=== PATIENT | male | born 1995 | race Caucasian/White ===

== ENCOUNTER 2016-12-25 07:37 | Emergency (ER) | payer OTHER ==
--- NOTE | 2016-12-25 08:52 | UC ---
Skin Complaint HPI - HPI Summary HPI Summary: WOKE UP THIS MORNING WITH RED AREAS ON HIS LEGS, ARMS AND RIGHT GREAT TOE. NO FEVER. SPOTS ARE ITCHY AND SLIGHTLY TENDER. - History of Current Complaint Chief Complaint: UCSkin Time Seen by Provider: 12/25/16 08:31 Stated Complaint: RED AREA ON LEG Hx Obtained From: Patient Onset/Duration: Sudden Onset, Lasting Hours, Still Present Timing: Constant Onset Severity: Moderate Current Severity: Moderate Pain Intensity: 0 Pain Scale Used: 0-10 Numeric Character: Pruritus, Pain, Redness, Raised Aggravating: Touch Alleviating: Nothing Associated Signs & Symptoms: Positive: Negative - Allergy/Home Medications Allergies/Adverse Reactions: Allergies Allergy/AdvReac Type Severity Reaction Status Date / Time Hydrocodone AdvReac Vomiting Verified 01/26/16 15:22 [From Hydrocodone W/Acetaminophen] Home Medications: Home Medications ALPRAZolam TAB* [Xanax TAB*] 1 mg PO PRN 12/25/16 [History] Review of Systems Constitutional: Negative Skin: Rash Respiratory: Negative Cardiovascular: Negative Gastrointestinal: Negative All Other Systems Reviewed And Are Negative: Yes PMH/Surg Hx/FS Hx/Imm Hx Endocrine History Of: Denies: Diabetes, Thyroid Disease, Hyperthyroidism, Hypothyroidism, Dyslipidemia Cardiovascular History Of: Denies: Cardiac Disorders, Hypertension, Pacemaker/ICD, Myocardial Infarction , Congestive Heart Failure, Atrial Fibrillation, Deep Vein Thrombosis, Bleeding Disorders Respiratory History Of: Denies: COPD, Asthma GI/ History Of: Denies: Gastroesophageal Reflux, Ulcer, Gastrointestinal Bleed, Gall Bladder Disease, Kidney Stones, Diverticulitis, Renal Disease, Urosepsis Neurological History Of: Denies: TIA, CVA, Dementia, Seizures, Migraine Psychological History Of: Reports: Anxiety - He is not on medications for these. He states that he is doing OK., Depression Denies: Bipolar Disorder, Schizophrenia, Post Traumatic Stress Disorder Cancer History Of: Denies: Lung Cancer, Colorectal Cancer, Breast Cancer, Prostate Cancer, Cervical Cancer Other History Of: Negative For: HIV, Hepatitis B, Hepatitis C, Anticoagulant Therapy - Surgical History Surgical History: Yes Surgery Procedure, Year, and Place: CYSTS REMOVED FROM LEFT WRIST X 2 - Family History Known Family History: Positive: Diabetes - questionable Negative: Cardiac Disease, Hypertension - Social History Alcohol Use: None Substance Use Type: None Smoking Status (MU): Never Smoked Tobacco Type: Smokeless Tobacco Amount Used/How Often: 1 can/3 days Have You Smoked in the Last Year: No Physical Exam Triage Information Reviewed: Yes Appearance: Well-Appearing, No Pain Distress, Well-Nourished Vital Signs: Initial Vital Signs Temp 98.0 F 12/25/16 07:47 Pulse 88 12/25/16 07:47 Resp 16 12/25/16 07:47 BP 140/90 12/25/16 07:47 Pulse Ox 98 12/25/16 07:47 Vital Signs Reviewed: Yes Eyes: Positive: Conjunctiva Clear ENT: Positive: Hearing grossly normal Neck: Positive: Supple Respiratory: Positive: No respiratory distress, No accessory muscle use Cardiovascular: Positive: Pulses Normal Abdomen Description: Positive: Soft Musculoskeletal: Positive: No Edema Neurological: Positive: Alert Psychological: Positive: Age Appropriate Behavior Skin: Positive: Other - ERYTHEMATOUS, INDURATED PATCHES AROUND CENTRAL PUNCTATE LESION (PROBABLE INSECT BITE). RIGHT UPPER INNER ARM 6CM X 5CM. RIGHT UPPER INNER THIGH 12CM X 10CV. LEFT UPPER INNER THIGH 16CM X 10CM. RIGHT GREAT TOE Course/Dx - Course Course Of Treatment: WILL TREAT FOR ALLERGIC REACTION TO BUG BITES AND ALSO COVER FOR INFECTION. - Differential Diagnoses - Skin Complaint Differential Diagnoses: Allergic Reaction, Cellulitis - Diagnoses Provider Diagnoses: INSECT BITES - ALLERGIC REACTION Discharge - Discharge Plan Condition: Stable Disposition: HOME Prescriptions: Cephalexin CAP* [Keflex 500 CAP*] 1,000 mg PO BID #28 cap Loratadine [Loratadine Allergy Relief] 10 mg PO DAILY #30 tab Triamcinolone 0.1% CREAM(NF) [Kenalog Cream 0.1%(NF)] 1 applic TOPICAL TID PRN # 1 tube PRN Reason: Itching predniSONE TAB* [Deltasone TAB*] 50 mg PO DAILY #5 tab Patient Education Materials: Insect Bite or Sting (ED) Referrals: Diana Sweeney MD [Primary Care Provider] - If Needed Additional Instructions: YOU APPEAR TO BE HAVING AN ALLERGIC REACTION TO INSECT BITES. WILL TREAT WITH PREDNISONE, TOPICAL STEROID CREAM AND DAILY ANTIHISTAMINE. WILL ALSO COVER FOR POSSIBLE SKIN INFECTION WITH KEFLEX. TAKE FOR THE FULL 7 DAYS. SEEK FOLLOW-UP IF NOT IMPROVING EXPECTED - IF YOU DEVELOP SPREADING REDNESS OF THE SKIN, PURULENT DRAINAGE, FEVER, INCREASED PAIN OR ANY OTHER CONCERNING SYMPTOMS. WASH ALL YOUR SHEETS AND TOWELS. CHECK YOUR MATTRESS SEAMS FOR BUGS. 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
[2016-12-25 08:58] VITALS: BP 138/82
== END 2016-12-25 09:05 | disposition home or self-care (01) ==
LOC: UCEAST 07:37
DX: S80.862A Insect bite (nonvenomous), left lower leg, initial encounter (principal); S80.861A Insect bite (nonvenomous), right lower leg, initial encounter; S40.862A Insect bite (nonvenomous) of left upper arm, initial encounter; S40.861A Insect bite (nonvenomous) of right upper arm, initial encounter; S90.461A Insect bite (nonvenomous), right great toe, initial encounter; W57.XXXA Bitten or stung by nonvenomous insect and other nonvenomous arthropods, initial encounter; Y93.9 Activity, unspecified; Y92.9 Unspecified place or not applicable; Z88.5 Allergy status to narcotic agent; F41.8 Other specified anxiety disorders; F17.220 Nicotine dependence, chewing tobacco, uncomplicated
CPT/HCPCS: 99212; G0463

== ENCOUNTER 2017-01-13 15:48 | Emergency (ER) | payer OTHER ==
[2017-01-13] MEDS ORDERED: Ibuprofen TAB* 400 MG PO ONE (18:04)
--- NOTE | 2017-01-13 18:36 | RAD ---
HISTORY: Fall on outstretched hand, right wrist tenderness COMPARISONS: None VIEWS: 4, Frontal, lateral, oblique, and scaphoid deviation views of the right wrist FINDINGS: BONE DENSITY: Normal. BONES: There is no displaced fracture. JOINTS: There is no arthropathy. ALIGNMENT: There is no dislocation. SOFT TISSUES: Unremarkable. OTHER FINDINGS: None. IMPRESSION: NO ACUTE OSSEOUS INJURY. IF SYMPTOMS PERSIST, RECOMMEND REPEAT IMAGING.
--- NOTE | 2017-01-13 18:37 | RAD ---
HISTORY: Fall on outstretched hand, right hand and wrist pain COMPARISONS: None VIEWS: 2, Frontal and lateral views of the right hand FINDINGS: BONE DENSITY: Normal. BONES: There is no displaced fracture. JOINTS: There is no arthropathy. ALIGNMENT: There is no dislocation. SOFT TISSUES: Unremarkable. OTHER FINDINGS: None. IMPRESSION: NO ACUTE OSSEOUS INJURY. IF SYMPTOMS PERSIST, RECOMMEND REPEAT IMAGING.
[2017-01-13 19:23] VITALS: BP 136/86
--- NOTE | 2017-01-13 23:50 | UC ---
jeny Jackson Timothy, scribed for Hien Gutiérrez MD on 01/13/17 at 1808 . Upper Extremity HPI - HPI Summary HPI Summary: Travis Maradiaga is a 22 yo male presenting to [facility] with 10/10 sharp, throbbing right wrist pain since 0830 this morning. Pt states his foot got tangled in his blanket this morning and he fell getting out of bed, landing on the top of his right wrist. Pt states the pain has been increasing throughout the day. Pt also has possible rash/bug bite/swelling on his left arm and right hand. He has self-medicated with tylenol. His MHx includes depression, anxiety, and left wrist cyst removal. - History of Current Complaint Chief Complaint: UCTrauma Stated Complaint: WRIST INJURY,BUG BITES Time Seen by Provider: 01/13/17 18:03 Hx Obtained From: Patient ?: No Onset/Duration: Sudden Onset, Lasting Hours, Worse Since - now Severity Initially: Moderate Severity Currently: Moderate Pain Intensity: 10 Pain Scale Used: 0-10 Numeric Location Of Pain: Is Discrete @ - right wrist and hand Character: Sharp, Throbbing Aggravating Factor(s): Movement, Lifting, Flexion, Extension, Internal/External Rotation Alleviating Factor(s): Nothing Associated Signs And Symptoms: Positive: Swelling, Redness - Allergies/Home Medications Allergies/Adverse Reactions: Allergies Allergy/AdvReac Type Severity Reaction Status Date / Time Hydrocodone AdvReac Vomiting Verified 01/13/17 17:47 [From Hydrocodone W/Acetaminophen] Home Medications: Home Medications Acetaminophen [Tylenol] 650 mg PO ONCE 01/13/17 [History Confirmed 01/13/17] PMH/Surg Hx/FS Hx/Imm Hx Endocrine History Of: Denies: Diabetes, Thyroid Disease, Hyperthyroidism, Hypothyroidism, Dyslipidemia Cardiovascular History Of: Denies: Cardiac Disorders, Hypertension, Pacemaker/ICD, Myocardial Infarction , Congestive Heart Failure, Atrial Fibrillation, Deep Vein Thrombosis, Bleeding Disorders Respiratory History Of: Denies: COPD, Asthma GI/ History Of: Denies: Gastroesophageal Reflux, Ulcer, Gastrointestinal Bleed, Gall Bladder Disease, Kidney Stones, Diverticulitis, Renal Disease, Urosepsis Neurological History Of: Denies: TIA, CVA, Dementia, Seizures, Migraine Psychological History Of: Reports: Anxiety - He is not on medications for these. He states that he is doing OK., Depression Denies: Bipolar Disorder, Schizophrenia, Post Traumatic Stress Disorder Cancer History Of: Denies: Lung Cancer, Colorectal Cancer, Breast Cancer, Prostate Cancer, Cervical Cancer Other History Of: Negative For: HIV, Hepatitis B, Hepatitis C, Anticoagulant Therapy - Surgical History Surgical History: Yes Surgery Procedure, Year, and Place: CYSTS REMOVED FROM LEFT WRIST X 2 - Family History Known Family History: Positive: Diabetes - questionable Negative: Cardiac Disease, Hypertension - Social History Lives: With Family Alcohol Use: None Substance Use Type: None Smoking Status (MU): Never Smoked Tobacco Type: Smokeless Tobacco Amount Used/How Often: 1 can/3 days Have You Smoked in the Last Year: No - Immunization History Most Recent Tetanus Shot: Pt states up to date Review of Systems Constitutional: Negative Skin: Rash - left arm Eyes: Negative ENT: Negative Respiratory: Negative Cardiovascular: Negative Gastrointestinal: Negative Genitourinary: Negative Motor: Negative Neurovascular: Negative Musculoskeletal: Other: - right wrist and hand pain Neurological: Negative Psychological: Negative All Other Systems Reviewed And Are Negative: Yes Physical Exam Triage Information Reviewed: Yes Appearance: Well-Appearing, Well-Nourished, Pain Distress Vital Signs: Initial Vital Signs Temp 99 F 01/13/17 17:48 Pulse 73 01/13/17 17:48 Resp 22 01/13/17 17:48 BP 142/82 01/13/17 17:48 Pulse Ox 100 01/13/17 17:48 Vital Signs Reviewed: Yes Eyes: Positive: Conjunctiva Clear. Negative: Discharge ENT: Positive: Hearing grossly normal. Negative: Muffled/hoarse voice Neck: Positive: Supple, Nontender Respiratory: Positive: Lungs clear, Normal breath sounds, No respiratory distress Cardiovascular: Positive: RRR, No Murmur, Pulses Normal, Brisk Capillary Refill Musculoskeletal: Positive: Strength Limited @ - right wrist, ROM Limited @ - right wrist, Other: - positive snuff box tenderness, more pain on the radial aspect of the right wrist; right hand pain and swelling Neurological: Positive: Alert, Muscle Tone Normal Psychological Exam: Normal Psychological: Positive: Age Appropriate Behavior Skin: Positive: rashes - swollen bites on the ulnar aspect of the left wrist and radial dorsal aspect of the left wrist. The ventral surface of his left arm shows diffuse redness with more bites in the proximal 3rd of the left dorsal forearm., Other - Swelling of the right dorsum of the hand Procedures - Procedure Summary Procedure Summary: Pt's right wrist and hand were splinted with no complications. Pt tolerated procedure well. - Splinting Location: Right wrist Pre-Made Type: cock up Splint: wrist - right, cock up Pre-Proc Neuro Vasc Exam: normal Post-Proc Neuro Vasc Exam: normal Diagnostics - Radiology R Wrist XR Xray Interpretation: No Acute Changes - IMPRESSION: NO ACUTE OSSEOUS INJURY. IF SYMPTOMS PERSIST, RECOMMEND REPEAT IMAGING. Radiology Interpretation Completed By: Radiologist R Hand XR Xray Interpretation: No Acute Changes - IMPRESSION: NO ACUTE OSSEOUS INJURY. IF SYMPTOMS PERSIST, RECOMMEND REPEAT IMAGING. Radiology Interpretation Completed By: Radiologist Re-Evaluation - Re-Evaluation First Eval Re-Evaluation Time: 18:47 Change: Improved Comment: Pt pain is improved. Discussed imaging results with Pt, he is agreeable to current course of Tx. Upper Extremity Course/Dx - Course Course Of Treatment: Travis Maradiaga is a 22 yo male presenting to [facility] with 10/10 right wrist pain and swollen bug bites on his left and right upper extremities. In urgent care he was given ibuprofen for pain management, as he drove himself here. Neither his right wrist or right hand XR suggest acute osseus injury. ISTOP was consulted, he had 90 hydrocodone 12/04/16, 10/31/16, 30 hydrocodone 10/18/16, 10/10/[address] Sweeney. After clinical examination and review of his imaging studies, he will be discharged home with right wrist sprain with appropriate instructions. He is advised to wear the splint as directed and if pain continues to have definite follow up to evaluate for possible navicular fracture. - Differential Dx/Diagnosis Differential Diagnosis/HQI/PQRI: Fracture (Closed), Sprain, Other - bug bites Provider Diagnoses: insect bites, right wrist sprain, snuff box tenderness with possible occult navicular fracture Discharge - Discharge Plan Condition: Stable Disposition: HOME Prescriptions: Triamcinolone 0.5% CREAM(NF) [Triamcinolone 0.5% CREAM*] 1 applic TOPICAL BID # 1 tube oxyCODONE/Acetamin 5/325 MG* [Percocet 5/325 TAB*] 1 tab PO Q4H PRN #12 tab MDD 6 PRN Reason: Pain Patient Education Materials: Insect Bite or Sting (ED), Suspected Fracture (ED) , Wrist Sprain (ED), Splint Care (ED) Forms: *Work Release Referrals: Kodak Fitch MD [Medical Doctor] - 2 Days Diana Sweeney MD [Primary Care Provider] - 1 Week Additional Instructions: Dr. Gutiérrez recommends flea-bombing your bedroom as discussed in room. Please wear the splint until you are evaluated by the orthopedist. Please follow up with Dr. Fitch, the orthopedist, as well as your primary care physician regarding your visit to urgent care today. Return to urgent care or the emergency department with any new or recurring symptoms. The documentation as recorded by the jeny sotomayor Timothy accurately reflects the service I personally performed and the decisions made by , Hien Gutiérrez MD.
== END 2017-01-13 19:26 | disposition home or self-care (01) ==
LOC: UCEAST 15:48
DX: S63.501A Unspecified sprain of right wrist, initial encounter (principal); W01.0XXA Fall on same level from slipping, tripping and stumbling without subsequent striking against object, initial encounter; Y93.89 Activity, other specified; Y92.9 Unspecified place or not applicable; Z88.5 Allergy status to narcotic agent; S60.862A Insect bite (nonvenomous) of left wrist, initial encounter; S50.862A Insect bite (nonvenomous) of left forearm, initial encounter; W57.XXXA Bitten or stung by nonvenomous insect and other nonvenomous arthropods, initial encounter; Y93.9 Activity, unspecified
CPT/HCPCS: 99213; A9270-GY; G0463

== ENCOUNTER 2018-03-17 15:05 | Emergency (ER) | payer OTHER ==
[2018-03-17 15:15] VITALS: BP 123/74
--- NOTE | 2018-03-17 15:25 | ED ---
Respiratory - HPI Summary HPI Summary: 23-year-old male presents with sinus congestion cough for the past 4 days. He states started in his sinus and moved to his lungs. He admits to some chest tightness when he coughs. He admits to postnasal drip. He admits to a sore throat. No fevers. No sinus pressure. No headache. No ear pain. No one else is sick. He is nonsmoker. No medical conditions. no abdominal pain. No nausea no vomiting no diarrhea. He states he hasn't taking anything for symptoms. - History of Current Complaint Pain Intensity: 0 <Risa Thomason - Last Filed: 03/17/18 15:27> <Amy Lerner - Last Filed: 03/17/18 17:03> - History of Current Complaint Chief Complaint: UCGeneralIllness Stated Complaint: COUGH,CHEST CONGESTION Time Seen by Provider: 03/17/18 15:20 - Allergy/Home Medications Allergies/Adverse Reactions: Allergies Allergy/AdvReac Type Severity Reaction Status Date / Time No Known Allergies Allergy Verified 03/17/18 15:08 PMH/Surg Hx/FS Hx/Imm Hx Endocrine/Hematology History: Denies: Hx Anticoagulant Therapy, Hx Diabetes, Hx Thyroid Disease Cardiovascular History: Denies: Hx Congestive Heart Failure, Hx Deep Vein Thrombosis, Hx Hypertension , Hx Myocardial Infarction, Hx Pacemaker/ICD Respiratory History: Denies: Hx Asthma, Hx Chronic Obstructive Pulmonary Disease (COPD), Hx Lung Cancer GI History: Denies: Hx Gall Bladder Disease, Hx Gastrointestinal Bleed, Hx Ulcer, Hx Urosepsis History: Denies: Hx Kidney Stones, Hx Renal Disease Musculoskeletal History: Reports: Hx Back Problems Sensory History: Denies: Hx Hearing Aid Neurological History: Denies: Hx Dementia, Hx Migraine, Hx Seizures, Hx Transient Ischemic Attacks (TIA) Psychiatric History: Reports: Hx Anxiety - He is not on medications for these. He states that he is doing OK., Hx Depression, Other Psychiatric Issues/ Disorders - ADHD Denies: Hx Eating Disorder, Hx Panic Disorder, Hx Schizophrenia, Hx Bipolar Disorder, Hx of Violent Episodes Against Others - Surgical History Surgery Procedure, Year, and Place: CYSTS REMOVED FROM LEFT WRIST X 2 - 2015 Infectious Disease History: No Infectious Disease History: Denies: Hx Clostridium Difficile, Hx Hepatitis, Hx Human Immunodeficiency Virus (HIV), Hx of Known/Suspected MRSA, Hx Shingles, Hx Tuberculosis, Hx Known/ Suspected VRE, Hx Known/Suspected VRSA, History Other Infectious Disease, Traveled Outside the [place] in Last 30 Days - Family History Known Family History: Positive: Diabetes - questionable Negative: Cardiac Disease, Hypertension - Social History Alcohol Use: None Substance Use Type: Reports: None Smoking Status (MU): Never Smoked Tobacco Type: Smokeless Tobacco Amount Used/How Often: 1 can/3 days Have You Smoked in the Last Year: No <Risa Thomason - Last Filed: 03/17/18 15:27> Review of Systems Negative: Fever Negative: Chest Pain Positive: Shortness Of Breath, Cough Negative: Abdominal Pain All Other Systems Reviewed And Are Negative: Yes <Risa Thomason - Last Filed: 03/17/18 15:27> Physical Exam Triage Information Reviewed: Yes Vital Signs On Initial Exam: Initial Vitals Temp Pulse Resp BP Pulse Ox 99 F 91 18 123/74 100 03/17/18 15:09 03/17/18 15:09 03/17/18 15:09 03/17/18 15:09 03/17/18 15:09 Vital Signs Reviewed: Yes Appearance: Positive: Well-Appearing Skin: Positive: Warm, Dry Head/Face: Positive: Normal Head/Face Inspection Eyes: Positive: Normal, EOMI, ARNIE, Conjunctiva Clear ENT: Positive: Normal ENT inspection, Pharynx normal, Nasal drainage, TMs normal Respiratory/Lung Sounds: Positive: Clear to Auscultation, Breath Sounds Present Cardiovascular: Positive: Normal, RRR Abdomen Description: Positive: Nontender, Soft Bowel Sounds: Positive: Present Musculoskeletal: Positive: Normal Neurological: Positive: Normal Psychiatric: Positive: Normal <Risa Thomason - Last Filed: 03/17/18 15:27> Vital Signs On Initial Exam: Initial Vitals Temp Pulse Resp BP Pulse Ox 99 F 91 18 123/74 100 03/17/18 15:09 03/17/18 15:09 03/17/18 15:09 03/17/18 15:09 03/17/18 15:09 <Amy Lerner - Last Filed: 03/17/18 17:03> Diagnostics - Vital Signs Vital Signs Temp Pulse Resp BP Pulse Ox 03/17/18 15:09 99 F 91 18 123/74 100 <Risa Thomason - Last Filed: 03/17/18 15:27> - Vital Signs Vital Signs Temp Pulse Resp BP Pulse Ox 03/17/18 15:09 99 F 91 18 123/74 100 <Amy Lerner - Last Filed: 03/17/18 17:03> Disposition - Course Course Of Treatment: 23-year-old male presents with sinus congestion cough for the past 4 days. He states started in his sinus and moved to his lungs. He admits to some chest tightness when he coughs. He admits to postnasal drip. He admits to a sore throat. No fevers. No sinus pressure. No headache. No ear pain. No one else is sick. He is nonsmoker. No medical conditions. no abdominal pain. No nausea no vomiting no diarrhea. He states he hasn't taking anything for symptoms. On exam nasal congestion present. Nontender sinuses. Pharynx normal. Lungs clear to auscultation. We'll treat with Flonase prednisone and Tessalon. Patient understands agrees with plan. - Differential Dx - Cardiopulmonary Differential Diagnoses - Cardiopulmonary: Bronchitis, Lower Resp Infection, Sinusitis <Risa Thomason - Last Filed: 03/17/18 15:27> <Amy Lerner - Last Filed: 03/17/18 17:03> - Diagnoses Provider Diagnoses: Upper respiratory infection Discharge - Sign-Out/Discharge Documenting (check all that apply): Discharge/Admit/Transfer - Billing Disposition and Condition Condition: GOOD Disposition: Home <Risa Thomason - Last Filed: 03/17/18 15:27> - Billing Disposition and Condition Condition: GOOD Disposition: Home <Amy Lerner - Last Filed: 03/17/18 17:03> - Discharge Plan Condition: Good Disposition: HOME Prescriptions: Albuterol HFA INHALER* [Ventolin HFA Inhaler*] 1 puff INH Q4H PRN #1 mdi PRN Reason: Cough Benzonatate CAP* [Tessalon 100 MG CAP*] 100 mg PO TID PRN #21 cap PRN Reason: Cough predniSONE TAB* [Deltasone TAB*] 50 mg PO DAILY #5 tab Patient Education Materials: Upper Respiratory Infection (ED) Forms: *Work Release Referrals: Diana Sweeney MD [Primary Care Provider] - Additional Instructions: Use Tessalon three times a day for cough Use inhaler one puff every 4 hours for cough as needed Take steroid once a day for 5 days use sudafed daily Use saline in the nose Use humidifier or place warm bowls of water around the room for cough Follow up with primary care physician in 5 days Return to ED if develop any new or worsening symptoms Attestation Statement User Type: Provider - I was available for consult. This patient was seen by the [facility]. The patient was not presented to, seen by, or examined by me. -Shmuel <Amy Lerner - Last Filed: 03/17/18 17:03>
== END 2018-03-17 15:35 | disposition home or self-care (01) ==
LOC: UCEAST 15:05
DX: J06.9 Acute upper respiratory infection, unspecified (principal)
CPT/HCPCS: 99212; G0463

== ENCOUNTER 2018-04-16 09:29 | Emergency (ER) | payer SELFPAY ==
[2018-04-16 09:40] VITALS: BP 127/75
--- NOTE | 2018-04-16 10:01 | UC ---
Respiratory Complaint HPI - HPI Summary HPI Summary: 23 year old male presents with c/o onset of shortness of breath last night. States was awoken from sleep twice with "chest heaviness" and a feeling "like he could not get a full breath". Reports had a lower respiratory infection approximately 2 months ago that required treatment with an albuterol inhaler however states that he was out of his inhaler when he tried to use last night. Denies fever, chills, URI symptoms, cough, chest pain, abdominal pain, N/V, diaphoresis. No history of asthma. Non-smoker. - History of Current Complaint Chief Complaint: UCRespiratory Stated Complaint: RESP Time Seen by Provider: 04/16/18 09:53 Hx Obtained From: Patient Timing: Intermittent Episodes Severity Initially: Moderate Severity Currently: Mild Pain Intensity: 2 Aggravating Factors: Nothing Alleviating Factors: Nothing Associated Signs And Symptoms: Negative: Fever, Chills, Pleuritic Chest Pain, Wheezing, Hemoptysis, URI - Risk Factors Pulmonary Embolism Risk Factors: Negative Cardiac Risk Factors: Negative Pseudomonas Risk Factors: Negative Tuberculosis Risk Factors: Negative - Allergies/Home Medications Allergies/Adverse Reactions: Allergies Allergy/AdvReac Type Severity Reaction Status Date / Time No Known Allergies Allergy Verified 04/16/18 09:32 PMH/Surg Hx/FS Hx/Imm Hx - Additional Past Medical History Additional PMH: non-contributory Previously Healthy: Yes Other History Of: Negative For: HIV, Hepatitis B, Hepatitis C, Anticoagulant Therapy - Surgical History Surgical History: Yes Surgery Procedure, Year, and Place: CYSTS REMOVED FROM LEFT WRIST X 2 - 2015 - Family History Known Family History: Positive: Diabetes - questionable Negative: Cardiac Disease, Hypertension, Respiratory Disease - Social History Alcohol Use: None Substance Use Type: None Smoking Status (MU): Never Smoked Tobacco Type: Smokeless Tobacco Amount Used/How Often: 1 can/3 days Have You Smoked in the Last Year: No - Immunization History Most Recent Tetanus Shot: Pt states up to date Review of Systems Constitutional: Negative ENT: Negative Respiratory: Shortness Of Breath, Other - chest tightness Cardiovascular: Negative Gastrointestinal: Negative Is Patient Immunocompromised?: No All Other Systems Reviewed And Are Negative: Yes Physical Exam Triage Information Reviewed: Yes Appearance: Well-Appearing, No Pain Distress, Well-Nourished Vital Signs: Initial Vital Signs Temp 98.1 F 04/16/18 09:33 Pulse 73 04/16/18 09:33 Resp 18 04/16/18 09:33 BP 127/75 04/16/18 09:33 Pulse Ox 99 04/16/18 09:33 Vital Signs Reviewed: Yes ENT Exam: Normal Respiratory Exam: Normal Cardiovascular Exam: Normal Skin Exam: Normal UC Diagnostic Evaluation - Laboratory O2 Sat by Pulse Oximetry: 99 - EKG Cardiac Rate: NL - rate 66 Cardiac Rhythm: Sinus: Normal Ectopy: None ST Segment: Normal Respiratory Course/Dx - Differential Dx/Diagnosis Differential Diagnosis/HQI/PQRI: Lower Resp Infection, Other - reactive airway disease Provider Diagnoses: shortness of breath Discharge - Sign-Out/Discharge Documenting (check all that apply): Patient Departure - Discharge Plan Condition: Stable Disposition: HOME Prescriptions: Albuterol HFA INHALER* [Ventolin HFA Inhaler*] 1 puff INH Q4H PRN #1 mdi PRN Reason: Cough Patient Education Materials: Reactive Airways Disease (ED) Forms: *Work Release Referrals: Diana Sweeney MD [Primary Care Provider] - 1 Week - Billing Disposition and Condition Condition: STABLE Disposition: Home Attestation Statement User Type: Provider - I was available for consult. This patient was seen by the [facility]. The patient was not presented to, seen by, or examined by me. -Shmuel
== END 2018-04-16 10:16 | disposition home or self-care (01) ==
LOC: UCEAST 09:29
DX: R06.02 Shortness of breath (principal); R07.89 Other chest pain; F17.220 Nicotine dependence, chewing tobacco, uncomplicated
CPT/HCPCS: 93005; 99212; G0463

== ENCOUNTER 2018-07-12 07:19 | Emergency (ER) | payer MEDICAID, OTHER ==
[2018-07-12 07:29] VITALS: BP 118/70
--- NOTE | 2018-07-12 07:45 | UC ---
Respiratory Complaint HPI - HPI Summary HPI Summary: 23yo male with cough and congestion for several days, feelings chills but no fever. - History of Current Complaint Chief Complaint: UCRespiratory Stated Complaint: CONGESTION SORE THROAT Time Seen by Provider: 07/12/18 07:36 Hx Obtained From: Patient Onset/Duration: Gradual Onset, Lasting Days Severity Initially: Mild Severity Currently: Mild Pain Intensity: 0 Character: Cough: Nonproductive - Allergies/Home Medications Allergies/Adverse Reactions: Allergies Allergy/AdvReac Type Severity Reaction Status Date / Time No Known Allergies Allergy Verified 07/12/18 07:29 PMH/Surg Hx/FS Hx/Imm Hx - Additional Past Medical History Additional PMH: chronic lumbago Other History Of: Negative For: HIV, Hepatitis B, Hepatitis C, Anticoagulant Therapy - Surgical History Surgical History: Yes Surgery Procedure, Year, and Place: CYSTS REMOVED FROM LEFT WRIST X 2 - 2015 - Family History Known Family History: Positive: Diabetes - questionable Negative: Cardiac Disease, Hypertension, Respiratory Disease - Social History Alcohol Use: Rare Substance Use Type: None Smoking Status (MU): Never Smoked Tobacco Type: Smokeless Tobacco Amount Used/How Often: 2 cans/week Have You Smoked in the Last Year: No - Immunization History Most Recent Tetanus Shot: Pt states up to date Review of Systems ENT: Sinus Congestion Respiratory: Cough All Other Systems Reviewed And Are Negative: Yes Physical Exam Triage Information Reviewed: Yes Appearance: Well-Appearing, No Pain Distress, Well-Nourished Vital Signs: Initial Vital Signs Temp 97.2 F 07/12/18 07:24 Pulse 61 07/12/18 07:24 Resp 16 07/12/18 07:24 BP 118/70 07/12/18 07:24 Pulse Ox 97 07/12/18 07:24 Vital Signs Reviewed: Yes Eyes: Positive: Conjunctiva Clear ENT: Positive: Hearing grossly normal, Pharynx normal, TMs normal Neck: Positive: Supple, Nontender, No Lymphadenopathy Respiratory: Positive: Chest non-tender, Lungs clear, Normal breath sounds, No respiratory distress Cardiovascular: Positive: RRR, No Murmur, Pulses Normal, Brisk Capillary Refill Abdomen Description: Positive: Nontender Bowel Sounds: Positive: Present UC Diagnostic Evaluation - Laboratory O2 Sat by Pulse Oximetry: 97 Respiratory Course/Dx - Differential Dx/Diagnosis Provider Diagnoses: viral URI Discharge - Sign-Out/Discharge Documenting (check all that apply): Patient Departure All imaging exams completed and their final reports reviewed: No Studies - Discharge Plan Condition: Stable Disposition: HOME Patient Education Materials: Viral Syndrome (ED), Ibuprofen (By mouth) Forms: *Work Release Referrals: Diana Sweeney MD [Primary Care Provider] - - Billing Disposition and Condition Condition: STABLE Disposition: Home
== END 2018-07-12 07:50 | disposition home or self-care (01) ==
LOC: UCEAST 07:19
DX: J06.9 Acute upper respiratory infection, unspecified (principal)
CPT/HCPCS: 99212; G0463

== ENCOUNTER 2019-03-11 14:50 | Emergency (ER) | payer OTHER ==
[2019-03-11 15:08] VITALS: BP 111/63
[2019-03-11] MEDS ORDERED: Triamcinolone Acetonide* 40 MG/ML 1 ML VIAL IM ONE (15:14)
--- NOTE | 2019-03-11 15:22 | UC ---
Skin Complaint HPI - HPI Summary HPI Summary: 24 yo male with pruritic rash after weed eating and removing brush rash on arms neck and groin no blistering - History of Current Complaint Chief Complaint: UCRash Time Seen by Provider: 03/11/19 15:08 Stated Complaint: SKIN ISSUE Hx Obtained From: Patient Onset/Duration: Gradual Onset, Lasting Hours Timing: Constant Onset Severity: Mild Current Severity: Moderate Pain Intensity: 0 Pain Scale Used: 0-10 Numeric Location: Discrete Character: Pruritus, Redness Aggravating Factor(s): Touch Alleviating Factor(s): Nothing Associated Signs & Symptoms: Positive: Rash. Negative: Nausea, Vomiting, Numbness, Thirst, Diaphoresis, Weakness, Pallor, Shivering, Difficulty Breathing , Fever, Chills, Cough, Wheezing, Chest Pain, Hoarseness, Throat Tightening, Abdominal Pain, Lightheadedness, Syncope, Drainage, Bruising, Tenderness, Red Streaks, Joint Swelling - Allergy/Home Medications Allergies/Adverse Reactions: Allergies Allergy/AdvReac Type Severity Reaction Status Date / Time No Known Allergies Allergy Verified 03/11/19 14:59 PMH/Surg Hx/FS Hx/Imm Hx Previously Healthy: Yes Other History Of: Negative For: HIV, Hepatitis B, Hepatitis C, Anticoagulant Therapy - Surgical History Surgical History: Yes Surgery Procedure, Year, and Place: CYSTS REMOVED FROM LEFT WRIST X 2 - 2015 - Family History Known Family History: Positive: Diabetes - questionable Negative: Cardiac Disease, Hypertension, Respiratory Disease - Social History Alcohol Use: None Substance Use Type: Marijuana Substance Use Comment - Amount & Last Used: HAS [employer]ICAL MARIJUANA Smoking Status (MU): Never Smoked Tobacco Type: Smokeless Tobacco Amount Used/How Often: QUIT JUL 2018 Have You Smoked in the Last Year: No - Immunization History Most Recent Tetanus Shot: Pt states up to date Review of Systems All Other Systems Reviewed And Are Negative: Yes Constitutional: Positive: Negative Skin: Positive: Rash Eyes: Positive: Negative ENT: Positive: Negative Respiratory: Positive: Negative Cardiovascular: Positive: Negative Gastrointestinal: Positive: Negative Genitourinary: Positive: Negative Motor: Positive: Negative Neurovascular: Positive: Negative Musculoskeletal: Positive: Negative Neurological: Positive: Negative Psychological: Positive: Negative Physical Exam Triage Information Reviewed: Yes Appearance: Well-Appearing, No Pain Distress, Well-Nourished Vital Signs: Initial Vital Signs Temp 98.1 F 03/11/19 15:00 Pulse 63 03/11/19 15:00 Resp 16 03/11/19 15:00 BP 111/63 03/11/19 15:00 Pulse Ox 97 03/11/19 15:00 Vital Signs Reviewed: Yes Eyes: Positive: Conjunctiva Clear ENT: Positive: Hearing grossly normal. Negative: Nasal congestion, Nasal drainage, Trismus, Muffled voice, Hoarse voice Dental Exam: Normal Neck: Positive: Supple, Nontender, No Lymphadenopathy Respiratory: Positive: Lungs clear, Normal breath sounds, No respiratory distress Cardiovascular: Positive: RRR, No Murmur Musculoskeletal: Positive: ROM Intact, No Edema Neurological: Positive: Alert Psychological Exam: Normal Skin Exam: Other - rash on arms/neck/groing c/w contact dermatitis Course/Dx - Diagnoses Provider Diagnosis: Contact dermatitis and eczema due to plant Discharge - Sign-Out/Discharge Documenting (check all that apply): Patient Departure All imaging exams completed and their final reports reviewed: No Studies - Discharge Plan Condition: Stable Disposition: HOME Patient Education Materials: Cortisone (Injection), Contact Dermatitis (ED) Referrals: Diana Sweeney MD [Primary Care Provider] - If Needed - Billing Disposition and Condition Condition: STABLE Disposition: Home
== END 2019-03-11 15:33 | disposition home or self-care (01) ==
LOC: UCCORT 14:50
DX: L25.5 Unspecified contact dermatitis due to plants, except food (principal); Z87.891 Personal history of nicotine dependence
CPT/HCPCS: 96372; 99211; G0463; J3301

== ENCOUNTER 2019-08-21 00:09 | Emergency (ER) | payer OTHER ==
[2019-08-21] MEDS ORDERED: Ciprofloxacin 0.3% OPTH.SOL* BTL BOTH EYES ONE (01:56)
[2019-08-21] MEDS ORDERED: Ibuprofen TAB* 600 MG PO ONE (01:56)
--- NOTE | 2019-08-21 02:03 | ED ---
Throat Pain/Nasal Congestion - HPI Summary HPI Summary: 24-year-old male with no significant past medical history reports the emergency department today complaining of left eye swelling and pain. He states he saw his eye doctor this afternoon as he has irritation from using new contacts. The eye doctor said he had "lacerations to his eyes" but did not require any medication. He states a few hours after this appointment he began having increased pain and swelling to left eye. He endorses blurred vision but has no extra ocular muscle entrapment. he states he does not have a foreign body sensation in the eye and does not believe there could be a foreign body. He denies fever, chest pain, abdominal pain, pain with urination. - History of Current Complaint Chief Complaint: EDEyeProblem Time Seen by Provider: 08/21/19 01:45 Hx Obtained From: Patient Onset/Duration: Gradual Onset, Lasting Hours Severity: Moderate Associated Signs And Symptoms: Negative: FB Sensation - Allergies/Home Medications Allergies/Adverse Reactions: Allergies Allergy/AdvReac Type Severity Reaction Status Date / Time No Known Allergies Allergy Verified 08/21/19 00:14 PMH/Surg Hx/FS Hx/Imm Hx Endocrine/Hematology History: Denies: Hx Anticoagulant Therapy, Hx Diabetes, Hx Thyroid Disease Cardiovascular History: Denies: Hx Congestive Heart Failure, Hx Deep Vein Thrombosis, Hx Hypertension , Hx Myocardial Infarction, Hx Pacemaker/ICD Respiratory History: Denies: Hx Asthma, Hx Chronic Obstructive Pulmonary Disease (COPD), Hx Lung Cancer GI History: Denies: Hx Gall Bladder Disease, Hx Gastrointestinal Bleed, Hx Ulcer, Hx Urosepsis History: Denies: Hx Kidney Stones, Hx Renal Disease Musculoskeletal History: Reports: Hx Back Problems Sensory History: Denies: Hx Hearing Aid Neurological History: Denies: Hx Dementia, Hx Migraine, Hx Seizures, Hx Transient Ischemic Attacks (TIA) Psychiatric History: Reports: Hx Anxiety - He is not on medications for these. He states that he is doing OK., Hx Depression, Other Psychiatric Issues/ Disorders - ADHD Denies: Hx Eating Disorder, Hx Panic Disorder, Hx Schizophrenia, Hx Bipolar Disorder, Hx of Violent Episodes Against Others - Surgical History Surgery Procedure, Year, and Place: CYSTS REMOVED FROM LEFT WRIST X 2 - 2015 - Immunization History Immunizations Up to Date: Yes Infectious Disease History: No Infectious Disease History: Denies: Hx Clostridium Difficile, Hx Hepatitis, Hx Human Immunodeficiency Virus (HIV), Hx of Known/Suspected MRSA, Hx Shingles, Hx Tuberculosis, Hx Known/ Suspected VRE, Hx Known/Suspected VRSA, History Other Infectious Disease, Traveled Outside the [place] in Last 30 Days - Family History Known Family History: Positive: Diabetes - questionable Negative: Cardiac Disease, Hypertension, Respiratory Disease - Social History Alcohol Use: None Substance Use Type: Reports: Marijuana Substance Use Comment - Amount & Last Used: 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 Negative: Photophobia, Diplopia, Drainage ENT: Negative Cardiovascular: Negative Respiratory: Negative Gastrointestinal: Negative Genitourinary: Negative Musculoskeletal: Negative Skin: Negative Neurological: Negative Psychological: Normal All Other Systems Reviewed And Are Negative: Yes Physical Exam Triage Information Reviewed: Yes Vital Signs On Initial Exam: Initial Vitals Temp Pulse Resp BP Pulse Ox 99.0 F 95 16 157/100 96 08/21/19 00:10 08/21/19 00:10 08/21/19 00:10 08/21/19 00:10 08/21/19 00:10 Vital Signs Reviewed: Yes Appearance: Positive: Well-Appearing, No Pain Distress, Well-Nourished Skin: Positive: Warm, Skin Color Reflects Adequate Perfusion Eyes: Positive: EOMI, ARNIE, Conjunctiva Inflammed, Other: - proptosis or hyphema noted. Conjunctiva are erythematous bilaterally however more so in the left. EOMI No extraocular muscle entrapment. There is mild edema noted to the upper and lower lid on the left side. No evidence of drainage. Patient is able to keep his eye open.. Negative: Conjunctiva Clear, Discharge ENT: Positive: Hearing grossly normal Respiratory/Lung Sounds: Positive: Clear to Auscultation, Breath Sounds Present Cardiovascular: Positive: RRR, S1, S2 Abdomen Description: Positive: Nontender, No Organomegaly Bowel Sounds: Positive: Present Musculoskeletal: Positive: Strength/ROM Intact Neurological: Positive: Sensory/Motor Intact, Alert, Oriented to Person Place, Time, Normal Gait, Speech Normal Psychiatric: Positive: Normal AVPU Assessment: Alert Procedures - Sedation Patient Received Moderate/Deep Sedation with Procedure: No Diagnostics - Vital Signs Vital Signs Temp Pulse Resp BP Pulse Ox 08/21/19 00:10 99.0 F 95 16 157/100 96 - Laboratory Lab Statement: Any lab studies that have been ordered have been reviewed, and results considered in the medical decision making process. EENT Course/Dx - Course Course Of Treatment: Patient was evaluated in the emergency department for right eye pain. His vitals are stable and he is afebrile. Exam was done and suggested his symptoms are due to irritation from his contact lenses as suggested by his EYE doctor this afternoon. Patient was given ciprofloxacin eyedrops for infection prophylaxis. The family was chosen for pseudomonal coverage as the patient was wearing contacts when his irritation began. He was told to follow-up with his eye doctor for further evaluation and management. - Differential Diagnoses Differential Diagnoses: Cellulitis, Conjunctivitis, Corneal Abrasion, Hyphema, Keratitis - Diagnoses Provider Diagnoses: Conjunctivitis Discharge ED - Sign-Out/Discharge Documenting (check all that apply): Patient Departure - Discharge Plan Condition: Stable Disposition: HOME Prescriptions: Ofloxacin 0.3% (Eye Drop) [Ocuflox OPTH 0.3% (Eye Drop)] 1 - 2 drop BOTH EYES Q4H #1 btl Patient Education Materials: Blurred Vision (ED), Eye Pain (ED) Referrals: Callum Duggan MD [Medical Doctor] - 3 Days Diana Sweeney MD [Primary Care Provider] - 2 Days Additional Instructions: You were seen in the emergency department today due to swelling of your eyes. You were given antibiotic eyedrops which will help with symptom relief. Please apply 1 drop to each eye every 4 hours for 7 days. you may take ibuprofen 600 mg every 6 hours as needed for 1 week for pain. Please follow-up with your eye doctor on Friday for further evaluation and management of your symptoms. Please do not wear contacts for 1 month. Please return to the emergency department immediately if you develop any new or worsening symptoms. - Billing Disposition and Condition Condition: STABLE Disposition: Home
[2019-08-21 02:43] VITALS: BP 132/80
== END 2019-08-21 02:35 | disposition home or self-care (01) ==
LOC: ED 00:09
DX: H10.9 Unspecified conjunctivitis (principal); Z87.891 Personal history of nicotine dependence
CPT/HCPCS: 99282; A9270-GY